=== PATIENT | male | born 2000 ===

== ENCOUNTER 2021-03-17 17:04 | Emergency (ER) | payer OTHER ==
[2021-03-17 17:21] VITALS: BP 130/64
--- NOTE | 2021-03-17 18:01 | XRay Report ---
RIGHT KNEE 4 VIEW(S) INDICATION / CLINICAL INFORMATION: right knee pain COMPARISON: None available. FINDINGS: BONES / JOINT(S): No acute fracture or subluxation. No significant arthritis. No joint effusion or in tra-articular body. Distal end of right femoral intramedullary jess is visualized. The distal end of a distal locking scre w projects beyond the cortex of the distal medial femur into the adjacent soft tissues. SOFT TISSUES: No significant abnormality. ADDITIONAL FINDINGS: None. Signer Name: Keo Lopez MD Signed: 03/17/2021 5:57 PM Workstation Name: [id number]
--- NOTE | 2021-03-17 18:17 | Emergency Department Report ---
ED Extremity Problem HPI - General Chief complaint: Extremity Problem,Nontraumatic Stated complaint: KNEE PAIN Source: patient Mode of arrival: Ambulatory Limitations: No Limitations - History of Present Illness Initial comments: 21-year-old -Portuguese male presents to the emergency room for chronic right knee pain. Patient denies any injury. Patient states that he has had right knee pain for the last 3 years. Patient reports that he has a jess with screws in his right thigh as he had a femoral fracture when he was 11. Patient states he has not followed back up with a orthopedic provider. Has not taken any medicine for pain. MD Complaint: joint paint Onset/Timin -: year(s) Location: right, knee History of Same: Yes Severity scale (0 -10): 6 Quality: aching Consistency: intermittent Improves with: nothing Worsens with: other (Walking for long period of time) Associated Symptoms: denies other symptoms - Related Data Allergies Allergy/AdvReac Type Severity Reaction Status Date / Time No Known Allergies Allergy Unverified 03/17/21 17:15 ED Review of Systems ROS: Stated complaint: KNEE PAIN Other details as noted in HPI ED Past Medical Hx - Past Medical History Previous Medical History?: Yes Additional medical history: right femoral fx - Surgical History Past Surgical History?: Yes Additional Surgical History: Right femoral repair @ age 11 - Social History Smoking Status: Current Every Day Smoker Substance Use Type: Marijuana ED Physical Exam - General Limitations: No Limitations General appearance: alert, in no apparent distress - Head Head exam: Present: atraumatic, normocephalic - Eye Eye exam: Present: normal appearance - ENT ENT exam: Present: normal external ear exam - Neck Neck exam: Present: normal inspection, full ROM - Respiratory Respiratory exam: Absent: accessory muscle use - Cardiovascular Cardiovascular Exam: Present: regular rate - Expanded Lower Extremity Exam Right Hip exam: Present: full ROM Upper Leg exam: Present: normal inspection, full ROM Knee exam: Present: normal inspection, full ROM. Absent: tenderness, swelling, abrasion, ecchymosis, erythema, effusion Lower Leg exam: Present: normal inspection, full ROM, abrasion. Absent: tenderness, swelling Ankle exam: Present: full ROM Foot/Toe exam: Present: normal inspection, full ROM Neuro vascular tendon exam: Present: no vascular compromise Gait: Positive: observed and normal - Back Exam Back exam: Present: normal inspection, full ROM - Neurological Exam Neurological exam: Present: alert, oriented X3, normal gait - Psychiatric Psychiatric exam: Present: normal affect, normal mood - Skin Skin exam: Present: warm, dry, intact, normal color. Absent: rash ED Course Vital Signs 03/17/21 17:18 Temperature 98.1 F Pulse Rate 60 Respiratory 16 Rate Blood Pressure 130/64 O2 Sat by Pulse 100 Oximetry ED Medical Decision Making - Radiology Data Radiology results: report reviewed [facility] [address] [place] [address] XRay Report Signed Patient: DINAH MENDEZ MR #: [id number] : 2000 Acct:[id number] Age/Sex: 21 / M ADM Date: 03/17/21 Loc: ED Attending Dr: Ordering Physician: KRISHAN BROWN MD Date of Service: 03/17/21 Procedure(s): XR knee 3V RT Accession Number(s): [id number] cc: ED MD STEPHANIE Fluoro Time In Minutes: RIGHT KNEE 4 VIEW(S) INDICATION / CLINICAL INFORMATION: right knee pain COMPARISON: None available. FINDINGS: BONES / JOINT(S): No acute fracture or subluxation. No significant arthritis. No joint effusion or intra-articular body. Distal end of right femoral intramedullary jess is visualized. The distal end of a distal locking screw projects beyond the cortex of the distal medial femur into the adjacent soft tissues. SOFT TISSUES: No significant abnormality. ADDITIONAL FINDINGS: None. Signer Name: Keo Lopez MD Signed: 03/17/2021 5:57 PM Workstation Name: [id number] Transcribed By: DT Dictated By: Kiko Lopez MD Electronically Authenticated By: Kiko Lopez MD Signed Date/Time: 03/17/211756 DD/ 55 TD/TT: Print Cancel - Medical Decision Making 21-year-old -Portuguese male presents to the emergency room for chronic right knee pain. Patient denies any injury. Patient states that he has had right knee pain for the last 3 years. Patient reports that he has a jess with screws in his right thigh as he had a femoral fracture when he was 11. Patient states he has not followed back up with a orthopedic provider. Has not taken any medicine for pain. X-ray of right knee was ordered by triage nurse. Critical care attestation.: If time is entered above; I have spent that time in minutes in the direct care of this critically ill patient, excluding procedure time. ED Disposition Clinical Impression: Chronic pain of right knee Disposition: DC-01 TO HOME OR SELFCARE Is pt being admited?: No Does the pt Need Aspirin: No Condition: Stable Instructions: Chronic Knee Pain, Adult Additional Instructions: You can take Tylenol or ibuprofen for pain. Follow-up with an orthopedic provider Referrals: JOHANNE ARIAS MD [Staff Physician] - 3-5 Days Forms: Work/School Release Form(ED)
== END 2021-03-17 18:25 | disposition home or self-care (01) ==
LOC: ED 17:04
DX: G89.29 Other chronic pain (principal); M25.561 Pain in right knee; F17.200 Nicotine dependence, unspecified, uncomplicated; Z72.89 Other problems related to lifestyle; Z98.890 Other specified postprocedural states; Z79.899 Other long term (current) drug therapy
CPT/HCPCS: 99283